=== PATIENT | female | born 1990 | race Caucasian/White ===

== ENCOUNTER 2022-04-26 13:29 | Outpatient (CLI) | payer OTHER ==
--- NOTE | 2022-04-26 16:41 | XRAY Report ---
PROCEDURE: Ankle 3 View LT INDICATIONS: SPRAIN OF UNSPECIFIED LIGAMENT OF LEFT ANKLE, INIT TECHNIQUE: 3 views of the ankle were acquired. COMPARISON: None FINDINGS: Bones: No fractures or dislocations. Widening of the medial ankle mortise. No suspicious bony lesion s. Soft tissues: No tibiotalar joint effusion. Achilles tendon appears normal. IMPRESSION: Widened medial ankle mortise, possibly indicating deltoid ligament injury. Initial furth er assessment with MRI is recommended. Reviewed by: Eliana Mccollum MD on 04/26/2022 4:40 PM PST Approved by: Eliana Mccollum MD on 04/26/2022 4:40 PM PST Station ID: [id number]
== END 2022-04-26 13:30 | disposition home or self-care (01) ==
LOC: DI 13:29
PROVIDERS: ATTEND Physician Assistant Medical
DX: S93.402A Sprain of unspecified ligament of left ankle, initial encounter (principal)

== ENCOUNTER 2022-06-21 08:00 | Outpatient (CLI) | payer OTHER ==
--- NOTE | 2022-06-21 14:40 | XRAY Report ---
PROCEDURE: Ankle View LT INDICATIONS: LEFT ANKLE PAIN TECHNIQUE: 3 views of the ankle were acquired. COMPARISON: None. FINDINGS: Bones: There are tiny bone fragments adjacent to lateral malleolus. The ankle mortise appears within normal limits on this study. Calcaneal enthesopathy again seen. Soft tissues: No suspicious calcifications. IMPRESSION: Tiny bone chips at the lateral malleolus probably represent avulsion fractures. No suspicious calcifi cations. Reviewed by: Aj oBss MD on 06/21/2022 2:39 PM PDT Approved by: Aj Boss MD on 06/21/2022 2:39 PM PDT Station ID: [id number]
== END 2022-06-21 23:59 | disposition home or self-care (01) ==
LOC: DI.WOS 08:00
PROVIDERS: ATTEND Physician Assistant Surgical
DX: S93.402A Sprain of unspecified ligament of left ankle, initial encounter (principal); M24.072 Loose body in left ankle

== ENCOUNTER 2022-09-05 08:00 | Outpatient (CLI) | payer OTHER ==
--- NOTE | 2022-09-05 17:54 | XRAY Report ---
PROCEDURE: Ankle 3 View LT INDICATIONS: LEFT ANKLE FRACTURE TECHNIQUE: 3 views of the ankle were acquired. COMPARISON: 3 views of the ankle dated 06/21/2022, 04/26/2022 FINDINGS: Bones: Fragmented appearance of the distal fibula appears unchanged from the study dated 06/21/2022. No callus or periosteal reaction visualized. Soft tissues: No tibiotalar joint effusion. Achilles tendon appears normal. IMPRESSION: Segment and appearance of the lateral malleolus unchanged from 06/21/2022. Findings suggest chronic no nunification of a previous avulsion fracture. Reviewed by: Anna Herron MD on 09/05/2022 5:53 PM PDT Approved by: Anna Herron MD on 09/05/2022 5:53 PM PDT Station ID: [id number]
== END 2022-09-05 23:59 | disposition home or self-care (01) ==
LOC: DI.WOS 08:00
PROVIDERS: ATTEND Physician Assistant Surgical
DX: S82.65XA Nondisplaced fracture of lateral malleolus of left fibula, initial encounter for closed fracture (principal)

== ENCOUNTER 2023-08-29 13:00 | Outpatient (CLI) | payer OTHER | END 2023-08-29 13:15 | disposition home or self-care (01) | LOC: LAB.N 13:00 | PROVIDERS: ATTEND Family Medicine | DX: R30.0 Dysuria (principal) | CPT/HCPCS: 87086 ==